=== PATIENT | female | born 1980 | race African-American/Black ===

== ENCOUNTER 2017-04-13 22:27 | Emergency (ER) | payer SELFPAY ==
[2017-04-13 23:00] VITALS: BP 103/75; PULSE 74; TEMP 98.2; BMI 68.3
--- NOTE | 2017-04-14 00:21 | PDOC ---
History of Present Illness - General History Source: Patient Exam Limitations: No Limitations - History of Present Illness Initial Comments: 04/14/17 00:31 The patient is a 36 year old female, with a significant past medical history of diabetes and right LE DVT (2012), who presents with one week of swelling to her right distal calf, ankle and foot. She states she was walking at work today and her right ankle, foot, and toes became numb and she "could not stand". She reports mild pain to her right ankle. She denies injury or trauma to the area. She states this "feels just like my prior DVT". LMP: 03/21/17 The patient denies chest pain, shortness of breath, headache and dizziness. The patient denies fever, chills, nausea, vomit, diarrhea and constipation. The patient denies dysuria, frequency, urgency and hematuria. Allergies: NKDA Past surgical history: none reported Social history: denies tobacco use PCP - Dr. Raman Thomas <Adelaida Nugent - Last Filed: 04/14/17 00:40> <Susan Cortez - Last Filed: 04/14/17 00:56> - General Chief Complaint: Edema Stated Complaint: NUMBNESS Time Seen by Provider: 04/14/17 00:16 Past History <Adelaida Nugent - Last Filed: 04/14/17 00:40> - Past Medical History Asthma: Yes COPD: No DVT: Yes Diabetes: Yes Other medical history: PCOS - Reproductive History (#): 0 Para: 0 - Immunization History Immunization Up to Date: Yes - Suicide/Smoking/Psychosocial Hx Smoking Status: No Smoking History: Never smoked Have you smoked in the past 12 months: No Number of Cigarettes Smoked Daily: 0 Information on smoking cessation initiated: No Hx Alcohol Use: No Drug/Substance Use Hx: No Substance Use Type: None Hx Substance Use Treatment: No <Susan Cortez - Last Filed: 04/14/17 00:56> - Past Medical History Allergies/Adverse Reactions: Allergies Allergy/AdvReac Type Severity Reaction Status Date / Time No Known Allergies Allergy Verified 04/14/17 00:29 Home Medications: Ambulatory Orders Spironolactone [Aldactone] 50 mg PO BID 03/18/13 metFORMIN HCL [Glucophage -] 850 mg PO BID 03/18/13 Ibuprofen [Motrin -] 600 mg PO TID PRN 04/14/17 Review of Systems - Review of Systems Able to Perform ROS?: Yes Comments:: 04/14/17 00:35 CONSTITUTIONAL: Absent: fever, chills, diaphoresis, generalized weakness, malaise, loss of appetite HEENT: Absent: rhinorrhea, nasal congestion, throat pain, throat swelling, difficulty swallowing, mouth swelling, ear pain, eye pain, visual Changes CARDIOVASCULAR: Absent: chest pain, syncope, palpitations, irregular heart rate, lightheadedness , peripheral edema RESPIRATORY: Absent: cough, shortness of breath, dyspnea with exertion, orthopnea, wheezing, stridor, hemoptysis GASTROINTESTINAL: Absent: abdominal pain, abdominal distension, nausea, vomiting, diarrhea, constipation, melena, hematochezia GENITOURINARY: Absent: dysuria, frequency, urgency, hesitancy, hematuria, flank pain, genital pain MUSCULOSKELETAL: (+) right ankle, foot and distal calf swelling with numbness to right foot and toes. SKIN: Absent: rash, itching, pallor HEMATOLOGIC/IMMUNOLOGIC: Absent: easy bleeding, easy bruising, lymphadenopathy, frequent infections ENDOCRINE: Absent: unexplained weight gain, unexplained weight loss, heat intolerance, cold intolerance NEUROLOGIC: Absent: headache, focal weakness or paresthesias, dizziness, unsteady gait, seizure, mental status changes, bladder or bowel incontinence PSYCHIATRIC: Absent: anxiety, depression, suicidal or homicidal ideation, hallucinations. <Adelaida Nugent - Last Filed: 04/14/17 00:40> *Physical Exam - Vital Signs Last Vital Signs Temp Pulse Resp BP Pulse Ox 98.2 F 74 20 103/75 100 04/13/17 22:58 04/13/17 22:58 04/13/17 22:58 04/13/17 22:58 04/13/17 22:58 - Physical Exam Comments: 04/14/17 00:36 GENERAL: Well developed, well nourished. Awake and alert. No acute distress. HEENT: Normocephalic, atraumatic. PERRLA, EOMI. No conjunctival pallor. Sclera are non- icteric. Moist mucous membranes. Oropharynx is clear. NECK: Supple. Full ROM. No JVD. Carotid pulses 2+ and symmetric, without bruits. No thyromegaly. No lymphadenopathy. CARDIOVASCULAR: Regular rate and rhythm. No murmurs, rubs, or gallops. Distal pulses are 2+ and symmetric. PULMONARY: No evidence of respiratory distress. Lungs clear to auscultation bilaterally. No wheezing, rales or rhonchi. ABDOMINAL: Soft. Non-tender. Non-distended. No rebound or guarding. No organomegaly. Normoactive bowel sounds. MUSCULOSKELETAL Normal range of motion at all joints. No bony deformities or tenderness. No CVA tenderness. EXTREMITIES: (+) right ankle and foot is edematous when compared to the left. There is no calf tenderness. No erythema or increased warmth. No evidence of cellulitis. sensation intact to light touch. DP intact. No cyanosis. No clubbing. SKIN: Warm and dry. Normal capillary refill. No rashes. No jaundice. NEUROLOGICAL: Alert, awake, appropriate. Cranial nerves 2-12 intact. Normoreflexic in the upper and lower extremities. Normal speech. Toes are down-going bilaterally. Gait is normal without ataxia. PSYCHIATRIC: Cooperative. Good eye contact. Appropriate mood and affect. <Adelaida Nugent - Last Filed: 04/14/17 00:40> - Vital Signs Last Vital Signs Temp Pulse Resp BP Pulse Ox 98.2 F 74 20 103/75 100 04/13/17 22:58 04/13/17 22:58 04/13/17 22:58 04/13/17 22:58 04/13/17 22:58 <Susan Cortez - Last Filed: 04/14/17 00:56> Medical Decision Making - Medical Decision Making 04/14/17 00:34 Case discussed with US laundry technician who states she does not come in for DVT studies until 7AM. Pt refuses to stay until 7AM for the ultrasound. I will treat with Lovenox and discharge home with instruction to return tomorrow for her DVT study. <Adelaida Nugent - Last Filed: 04/14/17 00:40> - Medical Decision Making 04/14/17 00:51 pt denies any shortness of breath,denies palpitations denies chest pain ,fever or chills <Susan Cortez - Last Filed: 04/14/17 00:56> *DC/Admit/Observation/Transfer - Attestations Scribe Attestion: 04/14/17 00:38 Documentation prepared by Adelaida Nugent, acting as medical library assistant for Susan Cortez MD <Adelaida Nugent - Last Filed: 04/14/17 00:40> <Susan Cortez - Last Filed: 04/14/17 00:56> Diagnosis at time of Disposition: Leg edema, right - Discharge Dispostion Disposition: HOME Condition at time of disposition: Stable - Referrals Referrals: Raman Thomas MD [Primary Care Provider] - - Patient Instructions Printed Discharge Instructions: DI for Peripheral Edema, Unilateral Additional Instructions: To rule out a deep vein thrombosis in your leg,please return at 7am for duplex doppler - Post Discharge Activity
[2017-04-14] MEDS ORDERED: ENOXAPARIN NA (PORCINE) 120 MG/0.8 ML DISP.SYRIN SQ STA (00:35)
[2017-04-14] MEDS ORDERED: ENOXAPARIN NA (PORCINE) 80 MG/0.8 ML DISP.SYRIN SQ ONE (00:36)
== END 2017-04-14 01:00 | disposition home or self-care (01) ==
LOC: JER 22:27
PROC: 3E013GC Introduction of Other Therapeutic Substance into Subcutaneous Tissue, Percutaneous Approach (ICD-10-PCS; principal; 2017-04-13)
DX: R60.0 Localized edema (principal); Z86.718 Personal history of other venous thrombosis and embolism; E11.9 Type 2 diabetes mellitus without complications; Z79.84 Long term (current) use of oral hypoglycemic drugs; J45.909 Unspecified asthma, uncomplicated; E28.2 Polycystic ovarian syndrome
CPT/HCPCS: 99281-25

== ENCOUNTER 2018-10-20 06:59 | Emergency (ER) | payer OTHER ==
[2018-10-20] MEDS ORDERED: ALBUTEROL SO4 2.5/IPRATROPIUM 0.5 INH SOL 3 ML VIAL.NEB. NEB ONE ×3 (07:04→12:22)
[2018-10-20 07:10] VITALS: BP 125/85; PULSE 88; TEMP 98.3; BMI 45.4
[2018-10-20] MEDS ORDERED: KETOROLAC TROMETHAMINE 30 MG/1 ML VIAL IVPUSH ONE (08:48)
[2018-10-20] MEDS ORDERED: KETOROLAC TROMETHAMINE 30 MG/1 ML VIAL ONE (09:04)
--- NOTE | 2018-10-20 09:14 | PDOC ---
Documentation entered by Opal Vazquez SCRIBE, acting as scribe for Conrad Stewart MD. Conrad Stewart MD: This documentation has been prepared by the George padilla Adrianna, SCRIBE, under my direction and personally reviewed by me in its entirety. I confirm that the documentation accurately reflects all work, treatment, procedures, and medical decision making performed by me. History of Present Illness - General Chief Complaint: Asthma Stated Complaint: DIFFICULTY BREATHING - History of Present Illness Initial Comments: 38 Y F, with PMH of PCOS, DM and right LE DVT (in 2013), who presents with 2 days of dyspnea. Patient notes difficulty breathing that began last night, which she believes is a combination of asthma exacerbation and cleaning her house with a bleach/ammonia mix. She endorses associated cough (red sputum last night, but is now clear), 3 episodes of NBNB vomit (secondary to excessive coughing), left-sided chest pain, upper back pain, and sore throat (secondary to excessive coughing). She denies any previous intubations for her asthma. She was last evaluated at [facility] for asthma exacerbation 7 months ago, and was placed on prednisone at that time. LMP was 3 days ago. Denies fever, chills, sick contacts, and recent travel. Allergies: NKDA Past surgical history: None reported Social history: Denies EtOH, tobacco, or illicit drug use PCP: Dr. Raman Thomas Past History - Past Medical History Allergies/Adverse Reactions: Allergies Allergy/AdvReac Type Severity Reaction Status Date / Time No Known Allergies Allergy Verified 04/14/17 00:29 Home Medications: Ambulatory Orders Spironolactone [Aldactone] 50 mg PO BID 03/18/13 metFORMIN HCL [Glucophage -] 850 mg PO BID 03/18/13 Ibuprofen [Motrin -] 600 mg PO TID PRN 04/14/17 Asthma: Yes COPD: No DVT: Yes Diabetes: Yes - Reproductive History (#): 0 Para: 0 - Immunization History Immunization Up to Date: Yes - Suicide/Smoking/Psychosocial Hx Smoking Status: No Smoking History: Never smoked Have you smoked in the past 12 months: No Number of Cigarettes Smoked Daily: 0 Information on smoking cessation initiated: No Hx Alcohol Use: No Drug/Substance Use Hx: No Substance Use Type: None Hx Substance Use Treatment: No Review of Systems - Review of Systems Comments:: CONSTITUTIONAL: No fever, no chills, no fatigue EYES: No visual changes ENT: +Sore throat (secondary to excessive coughing). No ear pain CARDIOVASCULAR: +Left-sided chest pain. No palpitations RESPIRATORY: +Dyspnea. +Cough (red sputum last night, now clear) GI: +3 episodes of NBNB vomit (secondary to excessive coughing). No abdominal pain, no constipation, no diarrhea GENITOURINARY: No dysuria, no frequency, no hematuria MUSKULOSKELETAL: +Upper back pain. No joint pain, no myalgias SKIN: No rash NEURO: No headache *Physical Exam - Vital Signs Last Vital Signs Temp Pulse Resp BP Pulse Ox 98.3 F 88 20 125/85 100 10/20/18 07:09 10/20/18 07:09 10/20/18 07:09 10/20/18 07:09 10/20/18 07:09 - Physical Exam Comments: CONSTITUTIONAL: +Obese. Well-appearing; well-nourished; in no apparent distress HEAD: Normocephalic; atraumatic EYES: PERRL; EOM intact ENMT: External appears normal; normal oropharynx NECK: Supple; non-tender; no cervical lymphadenopathy CARD: +Reproducible left anterior chest wall tenderness at the 2nd intercostal space. Normal S1, S2; no murmurs, rubs, or gallops RESP: Normal chest excursion with respiration; breath sounds clear and equal bilaterally; no wheezes, rhonchi, or rales ABD: Soft, non-distended; non-tender; no palpable organomegaly, no palpable hernias EXT: Normal ROM in all four extremities; non-tender to palpation; distal pulses intact SKIN: Warm, dry, no rash NEURO: No focal neurological deficiencies. Heart Score/ECG Review - Age Age: </= 45 - Risk Factors Risk Factors Heart Score: Yes Hx Diabetes, Yes Hx Obesity - ECG Impressions Comment:: Vent rate 60bpm. UT interval 206ms. QRS duration 84ms. QT/QTc 400/400ms. P-R-T axes 37 10 -12. Normal sinus rhythm with sinus arrhythmia. Cannot rule out anterior infarct, age undetermined. Abnormal ECG, unchanged from 2013. ED Treatment Course - LABORATORY CBC & Chemistry Diagram: 10/20/18 09:12 10/20/18 09:12 - ADDITIONAL ORDERS Additional order review: Laboratory Results 10/20/18 07:50 Urine HCG, Qual Negative - RADIOLOGY Radiology Studies Ordered: Category Date Time Status CHEST PA & LAT [RAD] Stat Radiology 10/20/18 07:27 Completed Radiograph Interpretation: EXAM#: TYPE/EXAM: RESULT: [id number] RAD/CHEST PA LAT Chest: Shortness of breath Impression: No acute chest pathology. Reported By: Fred Mac MD 10/20/18 09:03 EXAM#: TYPE/EXAM: RESULT: [id number] CT/CHEST CTA Chest pain. Rule out pulmonary embolus. IMPRESSION: There is no evidence of a pulmonary embolus within the main pulmonary artery and its proximal branches, bilaterally No acute lung disease is present. No enlarged mediastinal or hilar lymph nodes are identified. Visualized osseous structures appear intact with mild anterior spondylosis in the mid and lower thoracic spine.Reported By: Nelsy Lopez MD 10/20/18 11:47 Medical Decision Making - Medical Decision Making 10/20/18 09:11 Admitting the rubber patient is a 38-year-old female with history of PCO S, aspirin (no intubations), and DVT in 2014, currently not anticoagulated who presents with difficulty breathing for the past 24 hours and pleuritic left anterior chest pain for the past several hours that is exacerbated by cough and deep inhalation. Patient denies fevers/chills complains of several episodes of nonbloody, nonbilious vomiting and denies lower extremity pain or edema. Lungs are noted to be clear to auscultation. EKG shows sinus rhythm with inverted T waves in inferior and precordial leads which is unchanged from 2014. Chest x- ray reveals no evidence of infiltrate or effusion. Patient denies use of estrogen -containing medication. Will obtain CBC/CMP/d-dimer. We'll administer IV Toradol. D-dimer is noted to be elevated, we'll consider CTA of chest. 10/20/18 09:58 d-dimer is elevated. will obtain cta of chest 10/20/18 12:17 pt reascessed. pt resting comfortably. CTA of chest reveals no evidence of acute PE. There is no evidence of acute pulmonary pathology. There is no indication for steroids at this time. Will discharge with albuterol MDI as needed. *DC/Admit/Observation/Transfer Diagnosis at time of Disposition: Asthma Qualifiers: Asthma severity: mild Asthma persistence: intermittent Asthma complication type : with acute exacerbation Qualified Code(s): J45.21 - Mild intermittent asthma with (acute) exacerbation - Discharge Dispostion Disposition: HOME Condition at time of disposition: Stable - Referrals Referrals: Leonel Rogers MD [Staff Physician] - - Patient Instructions Printed Discharge Instructions: Asthma -- Adult - Post Discharge Activity Forms/Work/School Notes: Back to Work - Attestations Physician Attestion: 10/20/18 09:08 The documentation was prepared by the scribe under my direct supervision. I have reviewed the documentation which correctly represents the findings, medical decision-making and critical action taken by me.
[2018-10-20 09:20] LABS: BASO % 0.9 % (0-2.0); EOS % 1.1 % (0-4.5); HEMATOCRIT 35.8 % (32.4-45.2); HEMOGLOBIN 11.4 GM/dL (10.7-15.3); LYMPH % 22.5 % (8-40); MCH 22.5 pg (25.7-33.7); MCHC 31.8 g/dl (32.0-36.0); MEAN CELL VOLUME 70.7 fl (80-96); MEAN PLT VOLUME 7.6 fl (7.5-11.1); NEUT % 66.5 % (42.8-82.8); PLATELET COUNT 276 K/MM3 (134-434); RBC 5.06 M/mm3 (3.60-5.2); RDW 16.2 % (11.6-15.6); WHITE BLOOD COUNT 6.8 K/mm3 (4.0-10.0)
[2018-10-20 09:54] LABS: ALBUMIN 3.3 g/dl (3.4-5.0); BILIRUBIN,TOTAL 0.3 mg/dL (0.2-1); BLOOD UREA NITROGEN 10.8 mg/dL (7-18); CALCIUM 9.4 mg/dL (8.5-10.1); CREATININE 0.9 mg/dL (0.55-1.3); POTASSIUM 3.8 mmol/L (3.5-5.1)
--- NOTE | 2018-10-20 10:36 | EKG ---
Test Reason : Blood Pressure : / mmHG Vent. Rate : 060 BPM Atrial Rate : 060 BPM P-R Int : 206 ms QRS Dur : 084 ms QT Int : 400 ms P-R-T Axes : 037 010 -12 degrees QTc Int : 400 ms NORMAL SINUS RHYTHM WITH SINUS ARRHYTHMIA CANNOT RULE OUT ANTERIOR INFARCT , AGE UNDETERMINED ABNORMAL ECG WHEN COMPARED WITH ECG OF 18-MAR-2013 22:39, VENT. RATE HAS DECREASED BY 30 BPM Confirmed by SHERLY GONZALEZ, FARAZ ([id number]) on 10/20/2018 10:36:31 AM Referred By: Confirmed By:FARAZ DUBOIS MD
== END 2018-10-20 12:56 | disposition home or self-care (01) ==
LOC: JER 06:59
PROC: 3E0F7GC Introduction of Other Therapeutic Substance into Respiratory Tract, Via Natural or Artificial Opening (ICD-10-PCS; principal; 2018-10-20)
PROC: 3E0333Z Introduction of Anti-inflammatory into Peripheral Vein, Percutaneous Approach (ICD-10-PCS; 2018-10-20)
DX: J45.21 Mild intermittent asthma with (acute) exacerbation (principal)
CPT/HCPCS: 36415; 71046-TC-FY; 71275-TC; 80053; 84703; 85025; 85379; 93005; 93010; 94640; 96374; 99282-25

== ENCOUNTER 2018-12-21 20:55 | Emergency (ER) | payer OTHER ==
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
[2018-12-21 21:09] VITALS: BP 124/78; PULSE 87; TEMP 98.4; BMI 43.1
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
[2018-12-21] MEDS ORDERED: SILVER SULFADIAZINE 1% TOP CREAM 50 GM JAR TP ONE ×2 (22:09→22:10)
== END 2018-12-21 22:21 | disposition home or self-care (01) ==
LOC: JERFT 20:55
PROC: 2W2EX4Z Dressing of Right Hand using Bandage (ICD-10-PCS; principal; 2018-12-21)
DX: T23.191A Burn of first degree of multiple sites of right wrist and hand, initial encounter (principal); X11.8XXA Contact with other hot tap-water, initial encounter; Y93.G1 Activity, food preparation and clean up; Y92.030 Kitchen in apartment as the place of occurrence of the external cause; Y99.8 Other external cause status
CPT/HCPCS: 1600; 99281-25

== ENCOUNTER 2020-09-21 12:28 | Emergency (ER) | payer OTHER ==
[2020-09-21 13:04] VITALS: BP 106/71; PULSE 69; TEMP 98; BMI 45.6
[2020-09-21] MEDS ORDERED: IBUPROFEN 600 MG TABLET (FP) PO ONE ×2 (13:23→13:48)
== END 2020-09-21 13:49 | disposition home or self-care (01) ==
LOC: JERFT 12:28
DX: S43.402A Unspecified sprain of left shoulder joint, initial encounter (principal); W07.XXXA Fall from chair, initial encounter
CPT/HCPCS: 73030-TC-LT-FY; 99283-25

== ENCOUNTER 2021-09-13 21:58 | Emergency (ER) | payer OTHER ==
[2021-09-13 22:18] VITALS: BP 131/85; PULSE 100; RESP 20; TEMP 98; BMI 41.5
[2021-09-13] MEDS ORDERED: ALBUTEROL SO4 2.5/IPRATROPIUM 0.5 INH SOL 3 ML VIAL.NEB. NEB ONE ×3 (22:40→22:55)
[2021-09-13] MEDS ORDERED: predniSONE 20 MG TABLET (UD) PO ONE (22:45)
[2021-09-13] MEDS ORDERED: predniSONE 20 MG TABLET (UD) ONE (22:56)
== END 2021-09-14 00:31 | disposition home or self-care (01) ==
LOC: JER 21:58
PROC: 3E0F7GC Introduction of Other Therapeutic Substance into Respiratory Tract, Via Natural or Artificial Opening (ICD-10-PCS; principal; 2021-09-13)
DX: J45.901 Unspecified asthma with (acute) exacerbation (principal)
CPT/HCPCS: 0241U-QW; 71045-TC-FY; 99283-25

== ENCOUNTER 2022-06-23 09:47 | Emergency (ER) | payer OTHER ==
[2022-06-23 10:05] VITALS: BP 104/65; PULSE 73; RESP 18; TEMP 98.4; BMI 39.4
[2022-06-23] MEDS ORDERED: ACETAMINOPHEN 500 MG TABLET (FP) PO ONE (11:29)
[2022-06-23] MEDS ORDERED: ACETAMINOPHEN 500 MG TABLET (FP) ONE (11:52)
== END 2022-06-23 12:55 | disposition home or self-care (01) ==
LOC: JERFT 09:47 → JER 09:47 → JERFT 12:55
DX: R22.32 Localized swelling, mass and lump, left upper limb (principal); M79.642 Pain in left hand; M25.512 Pain in left shoulder; Y04.0XXA Assault by unarmed brawl or fight, initial encounter
CPT/HCPCS: 71046-TC-FY; 73030-TC-LT-FY; 73090-TC-LT-FY; 73110-TC-LT-FY; 73130-TC-LT-FY; 99283-25

== ENCOUNTER 2022-10-14 08:33 | Emergency (ER) | payer OTHER ==
[2022-10-14 08:42] VITALS: BP 116/66; PULSE 94; RESP 20; TEMP 97.6; BMI 38.6
[2022-10-14] MEDS ORDERED: ACETAMINOPHEN 325 MG TABLET (FP) PO ONE (10:02)
[2022-10-14] MEDS ORDERED: LIDOCAINE 5% TOPICAL PATCH TP ONE (10:03)
[2022-10-14] MEDS ORDERED: LIDOCAINE 5% TOPICAL PATCH ONE (10:20)
[2022-10-14] MEDS ORDERED: ACETAMINOPHEN 500 MG TABLET (FP) ONE (10:20)
[2022-10-14] MEDS ORDERED: diazePAM 2 MG TABLET PO ONE ×2 (10:25→11:41)
[2022-10-14] MEDS ORDERED: diazePAM 2 MG TABLET ONE ×2 (10:29→11:43)
[2022-10-14 11:07] LABS: URINE APPEARANCE CLEAR; URINE BILIRUBIN NEGATIVE (NEGATIVE); URINE COLOR YELLOW; URINE GLUCOSE (UA) NEGATIVE (NEGATIVE); URINE KETONE TRACE (NEGATIVE); URINE LEUK ESTERASE 2+ (NEGATIVE); URINE NITRITE NEGATIVE (NEGATIVE); URINE PROTEIN NEGATIVE (NEGATIVE); URINE UROBILINOGEN 0.2 mg/dL (0.2-1.0)
[2022-10-14 11:13] LABS: HCG,QUALITATIVE URINE Negative
[2022-10-14] MEDS ORDERED: KETOROLAC TROMETHAMINE 30 MG/1 ML VIAL IM ONE (11:41)
[2022-10-14] MEDS ORDERED: KETOROLAC TROMETHAMINE 15 MG/ML VIAL ONE (11:44)
[2022-10-14 12:15] LABS: HYALINE CASTS 0-2 /uL (0-3.1); URINE BACTERIA FEW /uL (0-1359)
[2022-10-14 12:16] LABS: EPI CELLS 0-5 /uL (0-25.1); URINE RBC 0-5 /uL (0-23.9)
== END 2022-10-14 12:47 | disposition home or self-care (01) ==
LOC: JERFT 08:33
PROC: 3E0233Z Introduction of Anti-inflammatory into Muscle, Percutaneous Approach (ICD-10-PCS; principal; 2022-10-14)
DX: M54.50 Low back pain, unspecified (principal)
CPT/HCPCS: 81003; 84703; 87077; 87086; 96372; 99284-25

== ENCOUNTER 2024-02-20 07:12 | Inpatient (IN) | payer OTHER ==
[2024-02-20] MEDS: ALBUTEROL SO4 2.5/IPRATROPIUM 0.5 INH SOL 3 ML VIAL.NEB. NEB SCH (07:37)
[2024-02-20] MEDS ORDERED: methylPREDNISolone NA SUCC 125 MG/2 ML VIAL ONE (07:45)
[2024-02-20] MEDS ORDERED: MAGNESIUM SULFATE IN WATER 2 GM/50 ML IVPB IVPB ONE (07:45)
[2024-02-20] MEDS: methylPREDNISolone NA SUCC 125 MG/2 ML VIAL IVPUSH ONE (08:25)
[2024-02-20 08:28] LABS: VENOUS BASE EXCESS -3.8 mmol/L (-2-2); VENOUS O2 SATURATION 51.4 % (70-80); VENOUS PCO2 39.7 mmHg (38-52); VENOUS PH 7.351 (7.310-7.410)
[2024-02-20] MEDS: MAGNESIUM SULFATE IN WATER 2 GM/50 ML IVPB IVPB ONE (08:38)
[2024-02-20 08:42] LABS: HEMATOCRIT 24.2 % (32.4-45.2); HEMOGLOBIN 7.2 GM/dL (10.7-15.3); MCHC 29.7 g/dl (32.0-36.0); MEAN CELL VOLUME 53.3 fl (80-96); MEAN PLT VOLUME 8.1 fl (7.5-11.1); PLATELET COUNT 354 10^3/uL (134-434); RBC 4.54 M/mm3 (3.60-5.2); RDW 23.1 % (11.6-15.6); WHITE BLOOD COUNT 5.8 K/mm3 (4.0-10.0)
[2024-02-20 08:46] LABS: MCH 15.8 pg (25.7-33.7)
[2024-02-20 08:53] LABS: POTASSIUM 3.7 mmol/L (3.5-5.1)
[2024-02-20 08:56] LABS: CALCIUM 8.7 mg/dL (8.5-10.1)
[2024-02-20 08:57] LABS: ALBUMIN 3.2 g/dl (3.4-5.0); BLOOD UREA NITROGEN 12.8 mg/dL (7-18)
[2024-02-20 09:00] LABS: CREATININE 0.8 mg/dL (0.55-1.3)
[2024-02-20 09:01] LABS: BILIRUBIN,TOTAL 0.2 mg/dL (0.2-1)
[2024-02-20 09:02] LABS: TOT PROT 7.4 g/dl (6.4-8.2)
[2024-02-20 10:21] LABS: ANISOCYTOSIS 0; MACROCYTOSIS 0
[2024-02-20] MEDS: MAGNESIUM SULF 50% (8.12 MEQ/2 ML-1 GM VIAL) IVPB ONE (10:50)
[2024-02-20] MEDS ORDERED: metFORMIN HCL 500 MG TABLET (FP) ONE (11:06)
[2024-02-20] MEDS ORDERED: ACETAMINOPHEN 325 MG TABLET (FP) ONE (11:16)
[2024-02-20 12:15] LABS: HIV INTERPRETATION NEGATIVE (NEGATIVE)
[2024-02-20] MEDS: metFORMIN HCL 500 MG TABLET (FP) PO ONE (13:58)
[2024-02-20] MEDS: ACETAMINOPHEN 500 MG TABLET (FP) PO ONE (13:58)
[2024-02-20] MEDS: ACETAMINOPHEN 1000 MG/100 ML BAG IVPB ONE (14:02)
[2024-02-20] MEDS ORDERED: ALBUTEROL SO4 2.5/IPRATROPIUM 0.5 INH SOL 3 ML VIAL.NEB. NEB PRN (16:41)
[2024-02-20] MEDS ORDERED: CEFTRIAXONE 1 G/50 ML PREMIX 50 ML IVPB ONE (18:25)
[2024-02-20] MEDS ORDERED: methylPREDNISolone NA SUCC 40 MG/1 ML VIAL ONE (18:25)
[2024-02-20] MEDS: CEFTRIAXONE 1 G/50 ML PREMIX 50 ML IVPB SCH (18:26)
[2024-02-20] MEDS: methylPREDNISolone NA SUCC 40 MG/1 ML VIAL IVPUSH SCH (18:38)
[2024-02-20] MEDS ORDERED: AZITHROMYCIN IVPB 500 MG/250 ML BAG IVPB ONE (18:39)
[2024-02-20] MEDS: AZITHROMYCIN IVPB 500 MG/250 ML BAG IVPB ONE (18:47)
[2024-02-20] MEDS ORDERED: ONDANSETRON 4 MG/2 ML VIAL ONE (20:01)
[2024-02-20] MEDS: ONDANSETRON 4 MG/2 ML VIAL IVPB ONE (20:04)
[2024-02-20] MEDS: INSULIN ASPART SLIDING SCALE (NOVOLOG) 1 VIAL SQ SCH (23:46)
[2024-02-20] MEDS ORDERED: SPIRONOLACTONE 25 MG TABLET ONE (23:47)
[2024-02-20] MEDS: SPIRONOLACTONE 25 MG TABLET PO SCH (23:54)
[2024-02-21] MEDS ORDERED: methylPREDNISolone NA SUCC 40 MG/1 ML VIAL ONE ×2 (02:46→19:18)
[2024-02-21 08:35] LABS: BASO % 0.1 % (0-2.0); HEMATOCRIT 26.2 % (32.4-45.2); HEMOGLOBIN 8.2 GM/dL (10.7-15.3); LYMPH % 13.1 % (8-40); MCHC 31.3 g/dl (32.0-36.0); MEAN CELL VOLUME 54.9 fl (80-96); MEAN PLT VOLUME 8.2 fl (7.5-11.1); MONO % 5.5 % (3.8-10.2); NEUT % 81.3 % (42.8-82.8); PLATELET COUNT 336 10^3/uL (134-434); RBC 4.77 M/mm3 (3.60-5.2); RDW 24.1 % (11.6-15.6); WHITE BLOOD COUNT 9.1 K/mm3 (4.0-10.0)
[2024-02-21 08:40] LABS: MCH 17.2 pg (25.7-33.7)
[2024-02-21 08:52] LABS: POTASSIUM 4.5 mmol/L (3.5-5.1)
[2024-02-21 08:56] LABS: CALCIUM 8.7 mg/dL (8.5-10.1)
[2024-02-21 08:57] LABS: BLOOD UREA NITROGEN 14.8 mg/dL (7-18)
[2024-02-21 09:00] LABS: CREATININE 0.9 mg/dL (0.55-1.3)
[2024-02-21 09:01] LABS: BILIRUBIN,TOTAL 0.3 mg/dL (0.2-1)
[2024-02-21 09:02] LABS: TOT PROT 7.3 g/dl (6.4-8.2)
[2024-02-21] MEDS ORDERED: CEFTRIAXONE 1 G/50 ML PREMIX 50 ML IVPB ONE (11:25)
[2024-02-21] MEDS: ENOXAPARIN NA (PORCINE) 40 MG/0.4 ML DISP.SYRIN SQ SCH (11:38)
[2024-02-21] MEDS ORDERED: OSELTAMIVIR PHOSPHATE 75 MG CAPSULE ONE ×2 (11:41→21:23)
[2024-02-21] MEDS: OSELTAMIVIR PHOSPHATE 75 MG CAPSULE PO SCH (11:47)
[2024-02-21] MEDS: metFORMIN HCL 500 MG TABLET (FP) PO SCH (11:49)
[2024-02-21] MEDS: ALBUTEROL SO4 2.5/IPRATROPIUM 0.5 INH SOL 3 ML VIAL.NEB. NEB SCH (18:57)
[2024-02-21] MEDS ORDERED: metFORMIN HCL 500 MG TABLET (FP) ONE (19:17)
[2024-02-21] MEDS ORDERED: ALBUTEROL SO4 2.5/IPRATROPIUM 0.5 INH SOL 3 ML VIAL.NEB. NEB ONE (21:22)
[2024-02-21] MEDS: SPIRONOLACTONE 25 MG TABLET PO SCH (21:23)
[2024-02-21] MEDS ORDERED: SPIRONOLACTONE 25 MG TABLET ONE (21:23)
[2024-02-22 05:07] VITALS: BMI 39.9
[2024-02-22 08:44] LABS: BASO % 0.1 % (0-2.0); HEMATOCRIT 27.3 % (32.4-45.2); HEMOGLOBIN 8.2 GM/dL (10.7-15.3); LYMPH % 13.6 % (8-40); MEAN CELL VOLUME 55.6 fl (80-96); MONO % 5.3 % (3.8-10.2); PLATELET COUNT 378 10^3/uL (134-434); RBC 4.91 M/mm3 (3.60-5.2); RDW 24.8 % (11.6-15.6); WHITE BLOOD COUNT 12.2 K/mm3 (4.0-10.0)
[2024-02-22 08:46] LABS: MCH 16.7 pg (25.7-33.7)
[2024-02-22 09:08] LABS: POTASSIUM 4.2 mmol/L (3.5-5.1)
[2024-02-22 09:18] LABS: ALBUMIN 3.1 g/dl (3.4-5.0); BLOOD UREA NITROGEN 18.7 mg/dL (7-18); CALCIUM 8.7 mg/dL (8.5-10.1)
[2024-02-22 09:21] LABS: CREATININE 0.9 mg/dL (0.55-1.3)
[2024-02-22 09:22] LABS: BILIRUBIN,TOTAL 0.2 mg/dL (0.2-1)
[2024-02-22 09:23] LABS: TOT PROT 7.5 g/dl (6.4-8.2)
[2024-02-23 08:09] LABS: BASO % 0.2 % (0-2.0); HEMATOCRIT 27.7 % (32.4-45.2); HEMOGLOBIN 8.3 GM/dL (10.7-15.3); LYMPH % 7.8 % (8-40); MCHC 29.8 g/dl (32.0-36.0); MEAN CELL VOLUME 55.3 fl (80-96); MEAN PLT VOLUME 8.3 fl (7.5-11.1); MONO % 6.6 % (3.8-10.2); NEUT % 85.4 % (42.8-82.8); PLATELET COUNT 339 10^3/uL (134-434); RBC 5.01 M/mm3 (3.60-5.2); RDW 24.1 % (11.6-15.6)
[2024-02-23 08:16] LABS: MCH 16.5 pg (25.7-33.7)
[2024-02-23] MEDS: ALBUTEROL SO4 0.083% IH SOL 2.5 MG/3 ML VIAL.NEB. NEB PRN (22:46)
[2024-02-24 09:32] LABS: BASO % 0.1 % (0-2.0); HEMATOCRIT 28.5 % (32.4-45.2); HEMOGLOBIN 8.5 GM/dL (10.7-15.3); LYMPH % 12.8 % (8-40); MCHC 29.8 g/dl (32.0-36.0); MEAN CELL VOLUME 55.7 fl (80-96); MEAN PLT VOLUME 8.2 fl (7.5-11.1); MONO % 7.5 % (3.8-10.2); NEUT % 79.6 % (42.8-82.8); PLATELET COUNT 392 10^3/uL (134-434); RBC 5.13 M/mm3 (3.60-5.2); RDW 24.6 % (11.6-15.6); RETICULOCYTES 1.23 % (0.5-1.5); WHITE BLOOD COUNT 11.3 K/mm3 (4.0-10.0)
[2024-02-24 09:36] LABS: MCH 16.6 pg (25.7-33.7)
[2024-02-24 09:51] LABS: CALCIUM 8.7 mg/dL (8.5-10.1)
[2024-02-24 09:52] LABS: BLOOD UREA NITROGEN 16.6 mg/dL (7-18)
[2024-02-24 09:54] LABS: CREATININE 0.9 mg/dL (0.55-1.3)
[2024-02-24 09:55] LABS: BILIRUBIN,TOTAL 0.3 mg/dL (0.2-1); TOT PROT 7.6 g/dl (6.4-8.2)
[2024-02-24 10:24] LABS: ANISOCYTOSIS 2+; MACROCYTOSIS 0; OVALOCYTE 2+
[2024-02-25 06:04] VITALS: TEMP 98.6
[2024-02-25 14:38] VITALS: BP 115/86; PULSE 76; RESP 18
== END 2024-02-25 16:30 | disposition home or self-care (01) | DRG 113 ==
LOC: JER 07:12 → UNDOADMOB 12:56 → OBSVTOIN 12:56 → JERBED 12:56 → INTOOBSV 12:56 → JERBED 16:39 → OBSVTOIN 16:39 → J7W 02-22 02:55
PROVIDERS: ADMIT Internal Medicine; ATTEND Internal Medicine
PROC: 30233N1 Transfusion of Nonautologous Red Blood Cells into Peripheral Vein, Percutaneous Approach (ICD-10-PCS; principal; 2024-02-20)
DX: J10.1 Influenza due to other identified influenza virus with other respiratory manifestations (principal); J45.901 Unspecified asthma with (acute) exacerbation; D50.9 Iron deficiency anemia, unspecified; E66.9 Obesity, unspecified; N93.8 Other specified abnormal uterine and vaginal bleeding; Z68.41 Body mass index [BMI] 40.0-44.9, adult
CPT/HCPCS: 0241U-QW; 36415; 36430; 71045-TC-FY; 71250-TC; 80053; 82607; 82728; 82746; 82803; 82962; 83036; 83540; 83550; 85025; 85045; 86803; 86850; 86900; 86901; 86922; 87389; 94640; 99285-25; P9058